=== PATIENT | male | born 1970 | race African-American/Black ===

== ENCOUNTER 2024-12-19 15:38 | Emergency (ER) | payer SELFPAY ==
[~2024-12-19] VITALS: Ht 182.9 cm; Wt 107.0 kg
[~2024-12-19 15:38] MED LIST: BUPR75TA3
[2024-12-19 15:59] VITALS: O2SAT 99
[2024-12-19] MEDS ORDERED: NEOM10DR11 RIGHT EAR (16:44)
[2024-12-19 17:06] VITALS: BP 114/45; PULSE 57; RESP 18; TEMP 36.7; O2SAT 99
== END 2024-12-19 17:08 | disposition home or self-care (01) ==
LOC: ER 15:38
DX: T16.1XXA Foreign body in right ear, initial encounter (principal); H60.91 Unspecified otitis externa, right ear; F20.9 Schizophrenia, unspecified; I10 Essential (primary) hypertension; F19.90 Other psychoactive substance use, unspecified, uncomplicated; W44.F9XA Other object of natural or organic material, entering into or through a natural orifice, initial encounter
CPT/HCPCS: 99283

== ENCOUNTER 2025-03-17 03:34 | Inpatient (IN) | payer BC, MEDICAID ==
[~2025-03-17] VITALS: Ht 182.9 cm; Wt 92.5 kg
[~2025-03-17 03:34] MED LIST changes: +NEOM10DR11 RIGHT EAR
[2025-03-17 03:38] VITALS: O2SAT 100
[2025-03-17 04:21] LABS: BASOPHILS % 1.2 % (0.0-2.0); EOSINOPHILS % 6.6 % (0.0-5.0); HEMATOCRIT. 42.3 % (42.0-52.0); HEMOGLOBIN. 13.6 g/dL (14.0-18.0); LYMPHOCYTES % 61.0 % (20.0-50.0); MEAN PLATELET VOLUME 9.7 fl (7.4-10.4); MONOCYTES % 9.3 % (2.0-8.0); NEUTROPHILS % 21.9 % (40.0-76.0); PLATELET 312 x1000/uL (130-400); RED BLOOD CELL COUNT 4.64 mill/uL (4.7-6.1); RED CELL DISTRIBUTION WIDTH 15.5 % (11.6-14.6)
[2025-03-17 04:35] LABS: CREATININE 1.4 mg/dL (0.6-1.3)
[2025-03-17 04:36] LABS: UREA NITROGEN BLOOD 20 mg/dL (9-23)
[2025-03-17 04:37] LABS: TROPONIN I HIGH SENSITIVITY 4 ng/L (3.0-53)
[2025-03-17] MEDS: ONDANSETRON HCL 4MG/2ML INJ IV ONE (05:16)
[2025-03-17] MEDS: ASPIRIN 325MG EC TABLET PO ONE (05:16)
[2025-03-17] MEDS: MORPHINE SULFATE 4 MG/ML INJ (FOR IV/IM USE) IV ONE (05:17)
[2025-03-17 05:50] LABS: ASPARTATE AMINOTRANSFERASE 12 IU/L (<34); BILIRUBIN DIRECT < 0.1 mg/dL (<=3.0); BILIRUBIN TOTAL 0.3 mg/dL (0.1-1.0); PROTEIN TOTAL 7.6 g/dL (6.0-8.3)
[2025-03-17 08:00] VITALS: BP 136/87; PULSE 50; RESP 20; TEMP 36.1; O2SAT 100
[2025-03-17 09:00] VITALS: BP 136/87; PULSE 50; RESP 18; TEMP 36.14
[2025-03-17 12:00] VITALS: BP 116/62; PULSE 68; RESP 20; TEMP 36.3; O2SAT 99
[2025-03-17 16:00] VITALS: BP 120/74; PULSE 69; RESP 18; TEMP 36.3; O2SAT 100
[2025-03-17 20:00] VITALS: BP 107/69; PULSE 57; RESP 18; TEMP 36.7; O2SAT 98
[2025-03-17] MEDS: SODIUM CHLORIDE 0.45% 1,000 ML IV SCH (21:38)
[2025-03-18] VITALS: BP_SYST 108; BP_SYST 96; BP_DIAS 45; BP_DIAS 64; PULSE 64; RESP 18; TEMP 36.3; O2SAT 96
[2025-03-18 04:00] VITALS: BP 106/78; PULSE 47; RESP 18; TEMP 36.9; O2SAT 96
[2025-03-18 08:00] VITALS: BP 118/70; PULSE 70; RESP 18; TEMP 36.9; O2SAT 98
[2025-03-18] MEDS ORDERED: MORPHINE SULFATE 2 MG/ML INJ (NOT FOR IM USE) IV PRN (08:45)
[2025-03-18] MEDS ORDERED: HYDROCODONE/ACETAMINOPHEN 5/325MG TABLET PO PRN (08:45)
[2025-03-18] MEDS ORDERED: NALOXONE HCL 0.4MG/ML VIAL IV PRN (09:00)
[2025-03-18] MEDS: ENOXAPARIN 40MG/0.4ML SYR SUBCUT SCH (09:06)
[2025-03-19] MEDS ORDERED: REGADENOSON 0.4 MG/5 ML IV NR (09:00)
== END 2025-03-18 10:05 | disposition left against medical advice (07) | DRG 206 ==
LOC: ER 03:34 → 7WST 05:21 → EDBEDREQTM 05:29 → EDBEDREQ 05:29 → ENRESERV 06:26
PROVIDERS: ADMIT Family Medicine Adult Medicine; ATTEND Family Medicine Adult Medicine
DX: M94.0 Chondrocostal junction syndrome [Tietze] (principal); N17.9 Acute kidney failure, unspecified; Z59.02 Unsheltered homelessness; I24.9 Acute ischemic heart disease, unspecified; Z53.29 Procedure and treatment not carried out because of patient's decision for other reasons; R00.1 Bradycardia, unspecified; F17.200 Nicotine dependence, unspecified, uncomplicated; Z79.899 Other long term (current) drug therapy
CPT/HCPCS: 36415; 71045; 80048; 80076; 80320; 83880; 84484; 85025; 93005; 99285; A4606; J1650; J2270; J2405; G0480

== ENCOUNTER 2025-03-18 11:48 | Emergency (ER) | payer BC ==
[~2025-03-18] VITALS: Ht 188 cm; Wt 109.0 kg
[2025-03-18 12:03] VITALS: O2SAT 98
[2025-03-18 12:15] VITALS: BP 117/63; PULSE 64; RESP 18; TEMP 37.1; O2SAT 99
== END 2025-03-18 13:10 | disposition left against medical advice (07) ==
LOC: ER 11:48
DX: R07.89 Other chest pain (principal); R00.2 Palpitations
CPT/HCPCS: 93005; 99281